=== PATIENT | female | born 1965 | race Caucasian/White ===

== ENCOUNTER 2019-12-06 11:17 | Inpatient (IN) ==
--- NOTE | 2019-11-18 10:39 | PAT Medication Instructions ---
Medication Instructions Date of Service November 18, 2019 Home Medications albuterol sulfate 1 inh INHALATION QID PRN alprazolam [Xanax] 0.25 mg PO QPM PRN amlodipine 5 mg PO QPM ascorbic acid (vitamin C) [Vitamin C] 500 mg PO QAM cyanocobalamin (vitamin B-12) [Vitamin B-12] 500 mcg PO QAM lansoprazole [Prevacid] 30 mg PO BID losartan 50 mg PO QAM metformin 500 mg PO BID metoclopramide HCl [Reglan] 5 mg PO BID montelukast [Singulair] 10 mg PO PM DO NOT take the morning of surgery ascorbic acid (vitamin C) [Vitamin C] 500 mg PO QAM cyanocobalamin (vitamin B-12) [Vitamin B-12] 500 mcg PO QAM losartan 50 mg PO QAM metformin 500 mg PO BID Take morning of surgery With a small sip of water, OTHERWISE NOTHING TO EAT OR DRINK AFTER MIDNIGHT: albuterol sulfate 1 inh INHALATION QID PRN (use if needed; please bring with you to hospital day of surgery if possible) lansoprazole [Prevacid] 30 mg PO BID metoclopramide HCl [Reglan] 5 mg PO BID Take evening before surgery albuterol sulfate 1 inh INHALATION QID PRN (if needed) alprazolam [Xanax] 0.25 mg PO QPM PRN (if needed) amlodipine 5 mg PO QPM lansoprazole [Prevacid] 30 mg PO BID metformin 500 mg PO BID metoclopramide HCl [Reglan] 5 mg PO BID montelukast [Singulair] 10 mg PO PM Other Notes If you have any questions please call us at [phone] or [phone] or [phone] or [phone]
--- NOTE | 2019-11-22 12:24 | Anesthesiology Consultation ---
Date of Service November 22, 2019 Assessment & Plan (1) Encounter for pre-operative examination: COVID Status: As of 11/21 assessment, patient denies travel to endemic area, known exposure/sick contacts, or symptoms of COVID19. Patient instructed that they and their household members must follow strict social distancing guidelines, wear a mask in public and avoid travel for 14 days prior to surgery. Preoperative COVID19 testing to be completed prior to surgery per surgeon's a rrangements. Patient made aware to self-isolate as much as possible between COVID testing and surgery. Chart Review Chart Review: Acceptable Risk for Surgery (pending PCP clearance 11/24) and Patient seen in Pre Admission Testing Teaching & Discussion Instructed NPO after midnight before surgery, except medications with 15 cc of water. Medication instructions provided according to the PAT guidelines. History Surgery Operation Date: 12/06/19 12:25 Proposed Procedures p L4-L5 Decompression Fusion, Spinal Cord Monitoring - Horace Holder, Height/Weight Height: 5 ft 1 in Weight: 70.7 kg Allergies Allergy/AdvReac Type Severity Reaction Status Date / Time clindamycin Allergy Hives Verified 11/17/19 16:20 iodine Allergy Redness of Verified 11/17/19 16:20 Skin latex Allergy Redness of Verified 11/17/19 16:20 Skin omeprazole Allergy Hives Verified 11/17/19 16:20 oxycodone Allergy Hives Verified 11/17/19 16:20 shellfish derived Allergy Hives Verified 11/17/19 16:20 Sulfa (Sulfonamide Allergy Hives Verified 11/17/19 16:20 Antibiotics) Medications Home Medications Medication Instructions Recorded Confirmed Last Taken albuterol sulfate 1 inh INHALATION QID PRN 11/17/19 11/17/19 Unknown alprazolam [Xanax] 0.25 mg PO QPM PRN 11/17/19 11/17/19 Unknown amlodipine 5 mg PO QPM 11/17/19 11/17/19 Unknown ascorbic acid (vitamin C) [Vitamin 500 mg PO QAM 11/17/19 11/17/19 Unknown C] cyanocobalamin (vitamin B-12) 500 mcg PO QAM 11/17/19 11/17/19 Unknown [Vitamin B-12] lansoprazole [Prevacid] 30 mg PO BID 11/17/19 11/17/19 Unknown losartan 50 mg PO QAM 11/17/19 11/17/19 Unknown metformin 500 mg PO BID 11/17/19 11/17/19 Unknown metoclopramide HCl [Reglan] 5 mg PO BID 11/17/19 11/17/19 Unknown montelukast [Singulair] 10 mg PO PM 11/17/19 11/17/19 Unknown Past Medical History Medical History Asthma rarely uses PRN inh DM type 2 (diabetes mellitus, type 2) NIDDM GERD (gastroesophageal reflux disease) History of cardiac murmur as a child History of rheumatic fever 1999 HTN (hypertension) Idiopathic pulmonary fibrosis follows with dr. tori tanner in [place] and also sees Dr. 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) Past Family History Family History Other No family history of adverse response to anesthesia Past Surgical History Surgical History History of ankle surgery History of arthroscopy of left knee History of bronchoscopy History of carpal tunnel release History of section x 2 History of colonoscopy History of elbow surgery Rt History of esophagogastroduodenoscopy (EGD) History of lung biopsy open History of repair of left rotator cuff History of surgery on right wrist History of total abdominal hysterectomy and bilateral salpingo-oophorectomy Hx of tonsillectomy Past Anesthesia History No Hx of Anesthesia Complications and No Family Hx of Anesthesia Complications History of PONV No Hx of PONV and Hx of Motion Sickness Social History Smoking Status: Never smoker Do You Dip or Chew Tobacco: No Hx Alcohol Use: No Hx Substance Use: No Review of Systems Pt denies any recent chest pain, shortness of breath, palpitations, cough above baseline from IPF, fever, URI, or uncontrolled acid reflux. Physical Exam Vital Signs BP: 115/77 P: 86bpm SPO2: 96% RA T: 98.5 F R: 16 ENMT Mouth: + dentures and + edentulous Thyromental Distance: > or= 3.5 Finger Breadths Mallampati Class: I Neck normal visual inspection; neck extension not limited Respiratory normal respiratory effort Auscultation: + diminished lung sounds (in apices) and + crackles (B/L bases and midlung) Cardiovascular Rate/Rhythm: regular rate and regular rhythm Heart Sounds: no murmur Vessels: no carotid bruit Testing Laboratory Results 11/22/19 12:28 11/22/19 12:28 PT 10.9 Seconds (9.0-12.0) 11/22/19 12:28 INR 1.0 (0.9-1.1) 11/22/19 12: APTT 26.2 Seconds (21.0-31.0) 11/22/19 12: Hemoglobin A1c 6.1 % (4.5-5.6) H 11/22/19 12:28 Urine Color Yellow 11/22/19 Unknown Urine Appearance Clear (Clear) 11/22/19 Unknown Urine pH 5.0 (4.5-7.5) 11/22/19 Unknown Ur Specific [place] 1.009 (1.000-1.030) 11/22/19 Unknown Urine Protein Negative (Negative) 11/22/19 Unknown Urine Glucose (UA) Negative (Negative) 11/22/19 Unknown Urine Ketones Negative (Negative) 11/22/19 Unknown Urine Nitrite Negative (Negative) 11/22/19 Unknown Ur Leukocyte Esterase Negative (Negative) 11/22/19 Unknown Blood Type A Negative 11/22/19 12:28 Antibody Screen NEGATIVE 11/22/19 12:28 Electrocardiogram Date: 11/22/19 Findings: + NSR @ (83bpm) Chest X-Ray Date: 11/22/19 IMPRESSION: 1. Abnormal chest x-ray 2. Diffuse bilateral interstitial opacities. Mild prominence the right paratracheal soft tissues. Diagnostic considerations include chronic inter stitial lung disease, an acute infectious/inflammatory interstitial process, or less likely interstitial pulmonary edema. Clinical correlation and correlation with prior radiographs recommended. *consistent with known PMH of IPF. Echocardiogram Date: 01/21/17 EF: 65% LV Function: normal Valvular Disease: + MR (mild) Aorta not well seen.
[2019-11-22 13:36] LABS: Basophils # (auto) 0.23 K/uL (0-0.2); Basophils % (auto) 1.8 %; Eosinophils # (auto) 1.46 K/uL (0-0.5); Eosinophils % (auto) 11.7 %; Hematocrit (blood only) 35.7 % (37-47); Hemoglobin 10.9 g/dL (12.0-16.0); Immature Granulocytes # (auto) 0.04 K/uL (0.00-0.02); Immature Granulocytes % (auto) 0.3 %; Lymphocytes # (auto) 3.11 K/uL (1.2-3.4); Lymphocytes % (auto) 24.9 %; Mean Corpuscular Hgb Conc 30.5 g/dL (32-36); Mean Corpuscular Volume 78.5 fL (80-100); Monocytes # (auto) 0.98 K/uL (0.11-0.59); Monocytes % (auto) 7.9 %; Neutrophils # (auto) 6.66 K/uL (1.4-6.5); Neutrophils % (auto) 53.4 %; Platelet Count 344 K/uL (130-400); RDW Coefficient of Variation 17.3 % (11.5-14.5); RDW Standard Deviation 49.5 fL (36.4-46.3); Red Blood Count 4.55 M/uL (4.2-5.4); White Blood Count 12.48 K/uL (4.8-10.8)
--- NOTE | 2019-11-22 13:38 | XRay Report ---
XR chest Pre-admission PA/Lat CLINICAL HISTORY: Preoperative chest COMPARISON STUDY: No previous studies for comparison. FINDINGS: The heart is borderline enlarged. There are diffuse bilateral interstitial opacities. Trace pleural effusions cannot be excluded. There is mild prominence of the right paratracheal soft tissue s and mild adenopathy is not excluded. Correlation with prior radiographs is recommended to determine the chronicity of this process.[ IMPRESSION: 1. Abnormal chest x-ray 2. Diffuse bilateral interstitial opacities. Mild prominence the right paratracheal soft tissues. Yaa gnostic considerations include chronic interstitial lung disease, an acute infectious/inflammatory in terstitial process, or less likely interstitial pulmonary edema. Clinical correlation and correlation with prior radiographs recommended. ACT 112: Negative or not required by law. Electronically signed by: Vish Santoro M.D. 11/22/2019 1:37 PM
[2019-11-22 13:46] LABS: Partial Thromboplastin Ratio 0.9; Partial Thromboplastin Time 26.2 Seconds (21.0-31.0); Prothrombin Time 10.9 Seconds (9.0-12.0)
[2019-11-22 13:58] LABS: BUN Creatinine Ratio 7.6 (10-20); Calcium 9.6 mg/dl (8.5-10.1); Est GFR (African American) 101.3; Est GFR (Non-African American) 87.4
[2019-11-22 13:59] LABS: Appearance Urine Clear (Clear); Bilirubin Urine Negative (Negative); Blood Urine Negative (Negative); Color Urine Yellow; Glucose Urine UA Negative (Negative); Ketones Urine Negative (Negative); Leukocyte Esterase Urine Negative (Negative); Nitrite Urine Negative (Negative); Protein Urine Negative (Negative); Specific Gravity Urine 1.009 (1.000-1.030); Urobilinogen Urine Negative (Negative)
[2019-11-23 06:06] LABS: Estimated Average Glucose 128 mg/dl; Hemoglobin A1C 6.1 % (4.5-5.6)
--- NOTE | 2019-11-23 06:48 | Electrocardiogram Report ---
Test Reason : Blood Pressure : / mmHG Vent. Rate : 083 BPM Atrial Rate : 083 BPM P-R Int : 148 ms QRS Dur : 080 ms QT Int : 368 ms P-R-T Axes : 030 084 036 degrees QTc Int : 432 ms Normal sinus rhythm Normal ECG No previous ECGs available Confirmed by Otilio De La Cruz ([id number]) on 11/23/2019 6:48:31 AM Referred By: Horace Holder Confirmed By:Otilio De La Cruz
[~2019-12-06 11:17] MED LIST: ACETAMINOPHEN 500 MG TAB PO SCH; CeleBREX 200 MG CAP PO SCH; GABAPENTIN 900 MG DOSE PO SCH; LR 15ML/HR IV SCH; MIDAZOLAM HCL 1 MG/ML 2ML VIAL ONE; ceFAZolin 1000MG 1,000 MG/7.5 ML SYR IV SCH; fentaNYL citrate 100 MCG/2 ML VIAL ONE
[2019-12-06] MEDS ORDERED: ATROPINE SULFATE 0.1 MG/ML 10ML SYR IV PRN (12:03)
[2019-12-06] MEDS ORDERED: ONDANSETRON INJ 2 MG/ML 2 ML VIAL IV PRN ×2 (12:03→15:44)
[2019-12-06] MEDS ORDERED: ePHEDrine sulfate 50 MG/ML AMP IV PRN (12:03)
[2019-12-06] MEDS ORDERED: PROMETHAZINE HCL 6.25 MG in SODIUM CHLORIDE 0.9% 50 ML IV PRN (12:03)
[2019-12-06] MEDS ORDERED: HYDROmorphone INJ 2 MG/ML SYR/VIAL IV PRN (12:03)
--- NOTE | 2019-12-06 12:09 | History & Physical Bridge Note ---
Date of Service December 06, 2019 History & Physical Bridge Note I have examined the patient, reviewed the History & Physical and in the interval since the performance of the History & Physical I have noted the following changes of clinical significance: no changes noted
--- NOTE | 2019-12-06 12:10 | History & Physical Report ---
Date of Service December 06, 2019 Assessment & Plan (1) Lumbar disc herniation with radiculopathy: Admission and Anticipated Discharge Date Admission Date: L4-5 decompression fusion History of Present Illness Chief Complaint: Back and bilateral leg pain Primary Care Provider: Darin James MD This is a 54-year-old female who presents with chronic persistent back and leg symptoms after failing course of nonoperative care is here for surgical intervention. Allergies Allergy/AdvReac Type Severity Reaction Status Date / Time clindamycin Allergy Hives Verified 12/06/19 11:45 iodine Allergy Redness of Verified 12/06/19 11:45 Skin latex Allergy Redness of Verified 12/06/19 11:45 Skin omeprazole Allergy Hives Verified 12/06/19 11:45 oxycodone Allergy Hives Verified 12/06/19 11:45 shellfish derived Allergy Hives Verified 12/06/19 11:45 Sulfa (Sulfonamide Allergy Hives Verified 12/06/19 11:45 Antibiotics) Home Medications Home Medications Medication Instructions Recorded Confirmed Type albuterol sulfate 1 inh INHALATION QID PRN 11/17/19 12/06/19 History alprazolam [Xanax] 0.25 mg PO QPM PRN 11/17/19 12/06/19 History amlodipine 5 mg PO QPM 11/17/19 12/06/19 History ascorbic acid (vitamin C) [Vitamin 500 mg PO QAM 11/17/19 12/06/19 History C] cyanocobalamin (vitamin B-12) 500 mcg PO QAM 11/17/19 12/06/19 History [Vitamin B-12] lansoprazole [Prevacid] 30 mg PO BID 11/17/19 12/06/19 History losartan 50 mg PO QAM 11/17/19 12/06/19 History metformin 500 mg PO BID 11/17/19 12/06/19 History metoclopramide HCl [Reglan] 5 mg PO BID 11/17/19 12/06/19 History montelukast [Singulair] 10 mg PO PM 11/17/19 12/06/19 History Past Med/Surg History Medical History Asthma rarely uses PRN inh DM type 2 (diabetes mellitus, type 2) NIDDM GERD (gastroesophageal reflux disease) History of cardiac murmur as a child History of rheumatic fever 1999 HTN (hypertension) Idiopathic pulmonary fibrosis follows with dr. tori tanner in [place] and also sees Dr. Yaneth Wilson, [facility] White coat syndrome with hypertension Surgical History History of ankle surgery History of arthroscopy of left knee History of bronchoscopy History of carpal tunnel release History of section x 2 History of colonoscopy History of elbow surgery Rt History of esophagogastroduodenoscopy (EGD) History of lung biopsy open History of repair of left rotator cuff History of surgery on right wrist History of total abdominal hysterectomy and bilateral salpingo-oophorectomy Hx of tonsillectomy Family History Other No family history of adverse response to anesthesia Social History Smoking Status: Never smoker Second Hand Exposure: Yes (as a child); Do You Dip or Chew Tobacco: No; Hx Alcohol Use: No Hx Substance Use: No Preferred Language: Yoruba Communication Ability: Effective Technical Training Instructor Required: No Beliefs That Will Affect Care: None Current Living Situation: Spouse Feels Safe at Home: Yes Safety Concerns: Feels Safe At This Time Assistive Devices: Denture - Upper, Denture - Lower and Glasses Physical Exam Physical Exam: Patient alert and oriented neurologically intact. Lungs clear to auscultation. Heart regular in rhythm. Results & Data ([facility]) Vital Signs (Past 12 Hours) Vital Signs Temp Pulse Resp BP Pulse Ox 12/06/19 11:51 36.8 C 83 20 179/100 H 95
[2019-12-06] MEDS ORDERED: BACITRACIN INJ 50,000 UNIT VIAL ONE (12:32)
[2019-12-06] MEDS ORDERED: BUPIVACAINE/EPINEPHRINE 0.25% 1:200,000 30 ML VIAL ONE (12:32)
[2019-12-06] MEDS ORDERED: ONDANSETRON INJ 2 MG/ML 2 ML VIAL ONE (13:17)
[2019-12-06] MEDS ORDERED: ROCURONIUM BROMIDE 10 MG/ML 5 ML VIAL IV ONE (13:17)
[2019-12-06] MEDS ORDERED: PROPOFOL IV EMULSION 10 MG/ML 20 ML VIAL IV ONE (13:17)
[2019-12-06] MEDS ORDERED: DEXAMETHASONE SOD INJ 4 MG/ML VIAL ONE (13:17)
[2019-12-06] MEDS ORDERED: LIDOCAINE HCL 2% 2 ML VIAL/AMP(20MG/ML) INFIL ONE (13:17)
[2019-12-06] MEDS ORDERED: LARYING-O-JET KIT (LTA) ONE (13:17)
[2019-12-06] MEDS ORDERED: ALBUTEROL HFA INHALER 8.5 GM ONE (13:18)
[2019-12-06] MEDS ORDERED: PHENYLEPHRINE 100MCG/ML 5ML SYR ONE (13:22)
[2019-12-06] MEDS ORDERED: ePHEDrine sulfate 50 MG/ML SYR ONE (13:22)
[2019-12-06] MEDS ORDERED: FLOSEAL HEMOSTATIC MATRIX 10ML TOP ONE (13:25)
[2019-12-06] MEDS ORDERED: HYDROmorphone INJ 2 MG/ML SYR/VIAL ONE (13:44)
[2019-12-06] MEDS ORDERED: SUGAMMADEX SODIUM 200 MG/2 ML VIAL IV ONE (14:04)
--- NOTE | 2019-12-06 14:10 | Operative Report ---
Post Operative Report Pre & Post Diagnosis Operation Date: 12/06/19 12:25 Pre-Op Diagnosis: Lumbar spinal stenosis with radiculopathy Post-Op Diagnosis: Same I identified the patient and participated in the time-out.: Yes Procedure Operation Date: 12/06/19 12:25 Actual Procedures #1 lumbar decompression with bilateral medial facetectomy and foraminotomies L4- 5. #2 posterior spinal fusion L4-5 per #3 please blisters rotation L4-5 per #4 interbody fusion L4-5. #5 placed a peek cage 13 x 22 mm at L4-5 for #6 placement of locally harvested morselized autograft in the posterior lateral gutters. #7 placement infuse collagen sponge, and master graft in the posterior lateral gutters and stamped interbody space. Surgeon Horace Holder, Binding End Stitcher Lucy Merida Estimated Blood Loss 25 Findings Consistent with Post-Op Diagnosis Specimens None Indications This is a 54-year-old female presents with above-mentioned diagnosis after failed extensive course of nonoperative care is here for the above-mentioned procedure. Description of Procedure Patient was met with identified informed consent obtained. Patient was then taken to the operative suite underwent admission placed in a prone position to check stable on top levels and frame. All bony prominences well-padded eyes inspected to ensure no external pressure placed upon the. This point the lumbar spine was prepped and draped in normal sterile fashion. Sharp dissection with the assistance of Bovie cautery was performed down to and exposing the lamina and transverse processes of L4 and L5 bilaterally. From caudal to cephalad fashion complete laminectomy of L4 was performed including bilateral medial facetectomies and foraminotomies addressing all neural encroachment. Pedicle screws then placed in L4 and L5 bilaterally with assistance of fluoroscopy the proper size kristen placed. By way of a transforaminal posterior left Steven discectomy of L4-5 was performed endplates curetted to subcortical being bone and a 13 x 22 mm peek cage filled with osteobone graft tapped in position. There was evidence of calcification of free fragments of disc material that had migrated cephalad they were removed in their entirety as well. Pedicle screw was then locked into final position bilaterally. The transverse processes of L4 and L5 burred to subcortical bleeding bone. Infuse, and sponge mask graft no bladder graft was placed in the posterior lateral gutters. 15 round ARBEN drain inserted. The incision was then closed with 1 Vicryl in the fascia 2-0 Vicryl subcutaneously and 4 Monocryl for final skin closure. Steri-Strips sterile dressings placed. Patient was awakened taken to PACU stable condition. Please note spinal cord monitoring was utilized at the procedure no changes noted. Penelope Merida was present for the entire surgery involved in patient positioning complex portions of the surgery and fashion closure. I attest to the content of the Intraoperative Record and any orders documented therein. Any exceptions are noted below.
--- NOTE | 2019-12-06 14:26 | Fluoroscopy Report ---
FL lumbar spine 2-3V CLINICAL HISTORY: L4-5 DECOMPRESSION/FUSION/INTERBODY COMPARISON STUDY: None. FLUOROSCOPY TIME: 13 seconds. FINDINGS: There are 2 fluoroscopic spot images of the lower lumbar spine. There is posterior decompre ssion fusion at L4-L5 with pedicle screws and rods. The hardware appears intact. IMPRESSION: Fluoroscopy provided for L4-L5 posterior decompression and fusion ACT 112: Negative or not required by law. Electronically signed by: Isai Faust M.D. 12/06/2019 2:25 PM
[2019-12-06] MEDS: fentaNYL citrate 100 MCG/2 ML VIAL IV PRN ×2 (14:43→15:10)
--- NOTE | 2019-12-06 15:08 | Anesthesiology Progress Note ---
Date of Service December 06, 2019 Anesthesia Post Procedure Vital Signs Vital Signs: Temp Pulse Resp BP BP Pulse Ox 12/06/19 15:05 87 13 130/79 98 12/06/19 14:55 36.8 C 90 12 133/81 99 12/06/19 14:45 91 H 16 125/79 100 12/06/19 14:35 98 H 18 129/83 100 12/06/19 14:28 36.7 C 97 H 13 142/85 H 100 12/06/19 11:51 36.8 C 83 20 179/100 H 95 Pain Intensity Lower Back: Pain Intensity: 5 Transfer of Care Handoff Completed per policy Notes Mental Status: alert / awake / arousable Patient Amnestic to Procedure: Yes Nausea / Vomiting: adequately controlled Pain: adequately controlled Airway Patency, RR, SpO2: stable & adequate BP & HR: stable & adequate Hydration State: stable & adequate Anesthetic Complications: no major complications apparent
[2019-12-06] MEDS ORDERED: NALOXONE HCL 0.4 MG/1 ML VIAL/CARP IV PRN (15:44)
[2019-12-06] MEDS ORDERED: LORazepam 0.5 MG/1 ML VIAL IV PRN (15:44)
[2019-12-06] MEDS ORDERED: ONDANSETRON 4 MG OD TAB PO PRN (15:44)
[2019-12-06] MEDS ORDERED: DO NOT ADMINISTER FLU VACCINE PRN (15:44)
[2019-12-06] MEDS ORDERED: PROMETHAZINE HCL 12.5 MG in SODIUM CHLORIDE 0.9% 50 ML IV PRN (15:44)
[2019-12-06] MEDS ORDERED: FAMOTIDINE 20 MG TAB PO PRN (15:44)
[2019-12-06] MEDS ORDERED: ALUMINUM/MAGNESIUM SUSP 30 ML UDC PO PRN (15:44)
[2019-12-06] MEDS ORDERED: diphenhydrAMINE Capsule 25 MG CAP PO PRN (15:44)
[2019-12-06] MEDS ORDERED: SOD PHOSPHATE/SOD BIPHOSPHATE ENEMA 132 ML BTL PR PRN (15:44)
[2019-12-06] MEDS ORDERED: traMADol HCL 50 MG TABLET PO PRN (15:44)
[2019-12-06] MEDS ORDERED: ALBUTEROL HFA 8 GM INHALER INH PRN (15:44)
[2019-12-06] MEDS ORDERED: HYDROmorphone INJ 1 MG/ML SYRINGE IV PRN (15:44)
[2019-12-06] MEDS ORDERED: ACETAMINOPHEN 500 MG TAB PO PRN (15:44)
[2019-12-06] MEDS ORDERED: HYDROmorphone INJ 0.5 MG/0.5 ML SYR IV PRN (15:44)
[2019-12-06] MEDS ORDERED: DO NOT ADMINISTER PNEUMOCOCCAL VACCINE PRN (15:44)
[2019-12-06] MEDS ORDERED: MAGNESIUM HYDROXIDE SUSP 30 ML UDC PO PRN (15:44)
[2019-12-06] MEDS ORDERED: hydrOXYzine HCl 25 MG TAB PO PRN (15:44)
[2019-12-06] MEDS ORDERED: LORazepam 0.5 MG TAB PO PRN (15:44)
[2019-12-06] MEDS ORDERED: ACETAMINOPHEN 1,000 MG/100 ML VIAL IV PRN (15:44)
[2019-12-06] MEDS ORDERED: METOCLOPRAMIDE HCL INJ 5 MG/ML 2 ML VIAL IV PRN (15:44)
[2019-12-06] MEDS ORDERED: bisacodyL 10 MG SUPP PR PRN (15:44)
[2019-12-06] MEDS ORDERED: INFLUENZA VIRUS QUAD VACCINE 0.5 ML SYR IM ONE (15:54)
[2019-12-06] MEDS ORDERED: INFLUENZA ADMINISTRATION CHARGE ONE (15:54)
[2019-12-06] MEDS ORDERED: PHARMACY GLYCEMIC MGMT CONSULT PRN (15:56)
[2019-12-06] MEDS: SODIUM CHLORIDE 0.9% 1000ML 1,000 ML IV SCH (16:12)
--- NOTE | 2019-12-06 16:13 | Hospitalist Consultation ---
Date of Consultation December 06, 2019 Assessment & Plan (1) S/P spinal surgery: This is a 54yo F with a PMH of HTN, DM II, asthma, idiopathic pulmonary fibrosis, GERD, anxiety and other medical problems listed below who is POD#0 s/p lumbar decompression and fusion by Dr. Holder. -POD#0 s/p lumbar decompression and fusion by Dr. Holder -Pt is doing well post-operatively -Per ortho for pain control, wound care, anticoagulation and activities -Monitor H&H (EBL 25ml), continue incentive spirometry, PT/OT when appropriate -Sounded tachycardic on exam. Ordered EKG to further assess. Continue IV fluids (2) HTN (hypertension): Normotensive. Continue home losartan and amlodipine tomorrow (3) DM type 2 (diabetes mellitus, type 2): A1c pending for AM -Hold home agents -SSI while in-patient -BSG AC HS (4) Asthma: Rarely uses rescue inhaler at home. Albuterol ordered PRN (5) Idiopathic pulmonary fibrosis: Does not require home O2. Not on steroids (6) Anxiety: Xanax held by primary service. Ativan PRN (7) GERD (gastroesophageal reflux disease): Continue Prevacid and Reglan BID PCP: Minor Dispo: Per primary service Patient seen in collaboration with Dr. Benites. Please see addendum. Supervising Physician Co-Signing Physician Notes I, Dr. Luis A Benites, have seen and assessed the patient with physician pastrycook's assistant and would like to comment On physical exam General exam: no acute distress Heart: mildly elevated heart rates Lungs: on room air, no wheezing Abdomen: soft, nontender Back: has ARBEN drain with blood Extremities: moves all extremities Assessment and Plan -this is a patient with Lumbar spinal stenosis with radiculopathy and had lumbar spine operation on 12/06/[address] Holder (Actual Procedures: #1 lumbar decompression with bilateral medial facetectomy and foraminotomies L4-5. #2 posterior spinal fusion L4-5 per #3 please blisters rotation L4-5 per #4 interbo dy fusion L4-5. #5 placed a peek cage 13 x 22 mm at L4-5 for #6 placement of locally harvested morselized autograft in the posterior lateral gutters. #7 placement infuse collagen sponge, and master graft in the posterior lateral gutters and stamped interbody space.) -hospitalist medicine consulted for medical management -patient follows with local pulmonary clinic and also [facility] for Idiopathic pulmonary fibrosis and currently not on any active IPF medications, does not use any CPAP at home, currently on room air -no wheezing on exam -follow the post-operative EKG, currently on IV fluids, monitor the heart rate -post-operatively the blood count is currently stable, follow the CBC, management of ARBEN drain as per orthopedics, on pain medications prn, PT/OT assessments for 12/07/2019 -management of blood pressure, type 2 diabetes mellitus, and anxiety as documented by physician pastrycook's assistant -agree with other assessment and plan as documented by physician pastrycook's assistant -Dr. Esparza will be consult hospitalist attending for the patient on 12/07/2019 History of Present Illness Reason for Consultation: post op medical mgmt Attending Physician: Horace Holder, History of Present Illness This is a 54yo F with a PMH of HTN, DM II, asthma, idiopathic pulmonary fibrosis, GERD, anxiety and other medical problems listed below who is POD#0 s/p lumbar decompression and fusion by Dr. Holder. Feeling well postoperatively. Denies any fever, chills, headache, lightheadedness, chest pain, palpitations, shortness of breath, abdominal pain, nausea, vomiting, dysuria, constipation or diarrhea. PCP is Dr. James. Has a history of IPF for which she follows with specialists locally as well as [facility]. Does not require home O2 or steroids. Allergies Allergy/AdvReac Type Severity Reaction Status Date / Time clindamycin Allergy Hives Verified 12/06/19 11:45 iodine Allergy Redness of Verified 12/06/19 11:45 Skin latex Allergy Redness of Verified 12/06/19 11:45 Skin omeprazole Allergy Hives Verified 12/06/19 11:45 oxycodone Allergy Hives Verified 12/06/19 11:45 shellfish derived Allergy Hives Verified 12/06/19 11:45 Sulfa (Sulfonamide Allergy Hives Verified 12/06/19 11:45 Antibiotics) Home Medications Home Medications Medication Instructions Recorded Confirmed Type albuterol sulfate 1 inh INHALATION QID PRN 11/17/19 12/06/19 History alprazolam [Xanax] 0.25 mg PO QPM PRN 11/17/19 12/06/19 History amlodipine 5 mg PO QPM 11/17/19 12/06/19 History ascorbic acid (vitamin C) [Vitamin 500 mg PO QAM 11/17/19 12/06/19 History C] cyanocobalamin (vitamin B-12) 500 mcg PO QAM 11/17/19 12/06/19 History [Vitamin B-12] lansoprazole [Prevacid] 30 mg PO BID 11/17/19 12/06/19 History losartan 50 mg PO QAM 11/17/19 12/06/19 History metformin 500 mg PO BID 11/17/19 12/06/19 History metoclopramide HCl [Reglan] 5 mg PO BID 11/17/19 12/06/19 History montelukast [Singulair] 10 mg PO PM 11/17/19 12/06/19 History Patient History Medical History Anxiety Asthma rarely uses PRN inh DM type 2 (diabetes mellitus, type 2) NIDDM GERD (gastroesophageal reflux disease) History of cardiac murmur as a child History of rheumatic fever 1999 HTN (hypertension) Idiopathic pulmonary fibrosis follows with dr. tori tanner in [place] and also sees Dr. Yaneth Wilson, [facility] White coat syndrome with hypertension Surgical History History of ankle surgery History of arthroscopy of left knee History of bronchoscopy History of carpal tunnel release History of section x 2 History of colonoscopy History of elbow surgery Rt History of esophagogastroduodenoscopy (EGD) History of lung biopsy open History of repair of left rotator cuff History of surgery on right wrist History of total abdominal hysterectomy and bilateral salpingo-oophorectomy Hx of tonsillectomy Family History (Updated 12/06/19 @ 16:44 by Gaye Tay PA-C) Other Heart disease No family history of adverse response to anesthesia Social History Smoking Status: Never smoker Second Hand Exposure: Yes (as a child); Do You Dip or Chew Tobacco: No; Hx Alcohol Use: No Hx Substance Use: No Preferred Language: [place] Islander Communication Ability: Effective Od Grinder Operator Required: No Beliefs That Will Affect Care: None Current Living Situation: Spouse Feels Safe at Home: Yes Safety Concerns: Feels Safe At This Time Assistive Devices: Denture - Upper, Denture - Lower and Glasses Review of Systems Review of Systems: At least ten systems reviewed and negative except as noted in the HPI. Physical Exam Physical Exam: General Appearance: WD/WN, vitals as above, NAD, sitting up in bed, pleasant, conversing easily Head: normocephalic, atraumatic Eyes: normal inspection, PERRL, conjunctivae normal, anicteric sclerae ENT: external ear and nose normal, oropharynx normal Neck: normal visual inspection, trachea midline, no thyromegaly Respiratory: normal respiratory effort, lungs clear to auscultation, no wheeze, rales, rhonchi. No accessory muscle use Cardiovascular: tachycardic rate, rhythm, no murmur, normal peripheral pulses, no BLE edema. Vessels: no JVD Abdomen/GI: normal bowel sounds, soft, nontender, no hepatosplenomegaly Extremities/Musculoskeletal: +ARBEN drain with serosanguineous output. No cyanosis or clubbing, extremities motor strength 5/5 Neurologic: PERRL, CN's II-XI intact bilaterally and moves all extremities Psychiatric: A+Ox3, euthymic affect Skin: no rashes, normal color, warm/dry Results & Data Results & Data ([facility]) Vital Signs (Past 12 Hours) Vital Signs Temp Pulse Pulse Resp BP BP Pulse Ox 12/06/19 15:44 36.6 C 89 21 124/81 100 12/06/19 15:25 87 18 122/76 99 12/06/19 15:15 85 15 129/79 97 12/06/19 15:05 87 13 130/79 98 12/06/19 14:55 36.8 C 90 12 133/81 99 12/06/19 14:45 91 H 16 125/79 100 12/06/19 14:35 98 H 18 129/83 100 12/06/19 14:28 36.7 C 97 H 13 142/85 H 100 12/06/19 11:51 36.8 C 83 20 179/100 H 95 Laboratory Results Short CBC 11/22/19 11/22/19 11/22/19 Range/Units 12:28 12:28 12:28 RBC 4.55 (4.2-5.4) M/uL MCV 78.5 L (80-100) fL MCH 24.0 L (25-34) pg MCHC 30.5 L (32-36) g/dL RDW Std Deviation 49.5 H (36.4-46.3) fL RDW Coeff of Kareem 17.3 H (11.5-14.5) % MPV 11.0 H (7.4-10.4) fL Immature Gran % (Auto) 0.3 % Neut % (Auto) 53.4 % Lymph % (Auto) 24.9 % [place] % (Auto) 7.9 % Eos % (Auto) 11.7 % Baso % (Auto) 1.8 % Neut # (Auto) 6.66 H (1.4-6.5) K/uL Lymph # (Auto) 3.11 (1.2-3.4) K/uL [place] # (Auto) 0.98 H (0.11-0.59) K/uL Eos # (Auto) 1.46 H (0-0.5) K/uL Baso # (Auto) 0.23 H (0-0.2) K/uL Immature Gran # (Auto) 0.04 H (0.00-0.02) K/uL PT 10.9 (9.0-12.0) Seconds INR 1.0 (0.9-1.1) APTT 26.2 (21.0-31.0) Seconds PTT Ratio 0.9 Sodium (136-145) mmol/L Potassium (3.5-5.1) mmol/L Chloride (98-107) mmol/L Carbon Dioxide (21-32) mmol/L Anion Gap (3-11) BUN (7-18) mg/dl Creatinine (0.6-1.2) mg/dl Est Cr Clr Drug Dosing ml/min Est GFR ( Amer) Est GFR (Non-Af Amer) BUN/Creatinine Ratio (10-20) Glucose (70-99) mg/dl POC Glucose (70-99) mg/dl Estimat Average Glucose mg/dl Hemoglobin A1c (4.5-5.6) % Calcium (8.5-10.1) mg/dl Urine Color Urine Appearance (Clear) Urine pH (4.5-7.5) Ur Specific [place] (1.000-1.030) Urine Protein (Negative) Urine Glucose (UA) (Negative) Urine Ketones (Negative) Urine Blood (Negative) Urine Nitrite (Negative) Urine Bilirubin (Negative) Urine Urobilinogen (Negative) Ur Leukocyte Esterase (Negative) Blood Type A Negative Antibody Screen NEGATIVE 11/22/19 11/22/19 11/22/19 Range/Units 12:28 12:28 Unknown RBC (4.2-5.4) M/uL MCV (80-100) fL MCH (25-34) pg MCHC (32-36) g/dL RDW Std Deviation (36.4-46.3) fL RDW Coeff of Kareem (11.5-14.5) % MPV (7.4-10.4) fL Immature Gran % (Auto) % Neut % (Auto) % Lymph % (Auto) % [place] % (Auto) % Eos % (Auto) % Baso % (Auto) % Neut # (Auto) (1.4-6.5) K/uL Lymph # (Auto) (1.2-3.4) K/uL [place] # (Auto) (0.11-0.59) K/uL Eos # (Auto) (0-0.5) K/uL Baso # (Auto) (0-0.2) K/uL Immature Gran # (Auto) (0.00-0.02) K/uL PT (9.0-12.0) Seconds INR (0.9-1.1) APTT (21.0-31.0) Seconds PTT Ratio Sodium 139 (136-145) mmol/L Potassium 4.0 (3.5-5.1) mmol/L Chloride 106 (98-107) mmol/L Carbon Dioxide 24 (21-32) mmol/L Anion Gap 9.0 (3-11) BUN 6 L (7-18) mg/dl Creatinine 0.78 (0.6-1.2) mg/dl Est Cr Clr Drug Dosing 74.0 ml/min Est GFR ( Amer) 101.3 Est GFR (Non-Af Amer) 87.4 BUN/Creatinine Ratio 7.6 L (10-20) Glucose 101 H (70-99) mg/dl POC Glucose (70-99) mg/dl Estimat Average Glucose 128 mg/dl Hemoglobin A1c 6.1 H (4.5-5.6) % Calcium 9.6 (8.5-10.1) mg/dl Urine Color Yellow Urine Appearance Clear (Clear) Urine pH 5.0 (4.5-7.5) Ur Specific [place] 1.009 (1.000-1.030) Urine Protein Negative (Negative) Urine Glucose (UA) Negative (Negative) Urine Ketones Negative (Negative) Urine Blood Negative (Negative) Urine Nitrite Negative (Negative) Urine Bilirubin Negative (Negative) Urine Urobilinogen Negative (Negative) Ur Leukocyte Esterase Negative (Negative) Blood Type Antibody Screen 12/06/19 12/06/19 Range/Units 12:00 14:29 RBC (4.2-5.4) M/uL MCV (80-100) fL MCH (25-34) pg MCHC (32-36) g/dL RDW Std Deviation (36.4-46.3) fL RDW Coeff of Kareem (11.5-14.5) % MPV (7.4-10.4) fL Immature Gran % (Auto) % Neut % (Auto) % Lymph % (Auto) % [place] % (Auto) % Eos % (Auto) % Baso % (Auto) % Neut # (Auto) (1.4-6.5) K/uL Lymph # (Auto) (1.2-3.4) K/uL [place] # (Auto) (0.11-0.59) K/uL Eos # (Auto) (0-0.5) K/uL Baso # (Auto) (0-0.2) K/uL Immature Gran # (Auto) (0.00-0.02) K/uL PT (9.0-12.0) Seconds INR (0.9-1.1) APTT (21.0-31.0) Seconds PTT Ratio Sodium (136-145) mmol/L Potassium (3.5-5.1) mmol/L Chloride (98-107) mmol/L Carbon Dioxide (21-32) mmol/L Anion Gap (3-11) BUN (7-18) mg/dl Creatinine (0.6-1.2) mg/dl Est Cr Clr Drug Dosing ml/min Est GFR ( Amer) Est GFR (Non-Af Amer) BUN/Creatinine Ratio (10-20) Glucose (70-99) mg/dl POC Glucose 95 136 H (70-99) mg/dl Estimat Average Glucose mg/dl Hemoglobin A1c (4.5-5.6) % Calcium (8.5-10.1) mg/dl Urine Color Urine Appearance (Clear) Urine pH (4.5-7.5) Ur Specific [place] (1.000-1.030) Urine Protein (Negative) Urine Glucose (UA) (Negative) Urine Ketones (Negative) Urine Blood (Negative) Urine Nitrite (Negative) Urine Bilirubin (Negative) Urine Urobilinogen (Negative) Ur Leukocyte Esterase (Negative) Blood Type Antibody Screen
[2019-12-06] MEDS ORDERED: CARBOHYDRATES FOR HYPOGLYCEMIA PO PRN ×2 (16:15→16:18)
[2019-12-06] MEDS ORDERED: DEXTROSE 50% 50 ML SYRINGE IV PRN ×2 (16:15→16:18)
[2019-12-06] MEDS ORDERED: GLUCOSE 10 TABS/TUBE PO PRN ×2 (16:15→16:18)
[2019-12-06] MEDS ORDERED: GLUCOSE 40% GEL 15 GM TUBE PO PRN ×2 (16:15→16:18)
[2019-12-06] MEDS ORDERED: GLUCAGON FOR INJ 1 MG VIAL IM PRN (16:15)
[2019-12-06] MEDS ORDERED: GLUCAGON FOR INJ 1 MG VIAL SQ PRN (16:18)
[2019-12-06] MEDS ORDERED: INSULIN ASPART 100 UNITS/ML 3 ML PEN SC SCH (16:30)
[2019-12-06 17:09] LABS: Hematocrit (blood only) 33.8 % (37-47); Hemoglobin 10.2 g/dL (12.0-16.0); Mean Corpuscular Hemoglobin 23.5 pg (25-34); Mean Corpuscular Hgb Conc 30.2 g/dL (32-36); Mean Corpuscular Volume 77.9 fL (80-100); Mean Platelet Volume 10.1 fL (7.4-10.4); Platelet Count 238 K/uL (130-400); RDW Coefficient of Variation 17.1 % (11.5-14.5); Red Blood Count 4.34 M/uL (4.2-5.4); White Blood Count 6.78 K/uL (4.8-10.8)
[2019-12-06] MEDS: KETOROLAC TROMETHAMINE 15 MG/ML VIAL IV SCH ×2 (17:22→21:08)
[2019-12-06 17:34] LABS: Albumin Level 3.1 gm/dl (3.4-5.0); BUN Creatinine Ratio 7.8 (10-20); Calcium 8.6 mg/dl (8.5-10.1); Creatinine Clr Calc Pharmacy 62.4 ml/min; Est GFR (African American) 79.8; Est GFR (Non-African American) 68.9; Magnesium 1.9 mg/dl (1.8-2.4); Potassium 3.7 mmol/L (3.5-5.1)
[2019-12-06 17:37] LABS: Albumin Globulin Ratio 0.8 (0.9-2); Bilirubin,Total 0.4 mg/dl (0.2-1); Globulin 3.7 gm/dl (2.5-4.0); Phosphorus 3.8 mg/dl (2.5-4.9); Total Protein 6.8 gm/dl (6.4-8.2)
[2019-12-06] MEDS: HYDROCODONE/ACETAMOPHEN 5/325MG TAB PO PRN ×2 (17:37→21:45)
[2019-12-06] MEDS: INSULIN ASPART 100 UNITS/ML 3 ML PEN SC SCH ×2 (18:19→21:08)
[2019-12-06] MEDS: ceFAZolin 2000MG 2,000 MG/15 ML SYR IV SCH (19:01)
[2019-12-06] MEDS: amLODIPine BESYLATE 5 MG TAB PO SCH (20:27)
[2019-12-06] MEDS: PANTOprazole 40 MG TAB PO SCH (20:28)
[2019-12-06] MEDS: MONTELUKAST SODIUM 10 MG TABLET PO SCH (20:28)
[2019-12-06] MEDS: METOCLOPRAMIDE HCL 5 MG TABLET PO SCH (20:28)
[2019-12-06] MEDS: DOCUSATE SODIUM/SENNA 50/8.6MG TAB PO SCH (20:28)
[2019-12-07] MEDS: ceFAZolin 2000MG 2,000 MG/15 ML SYR IV SCH (02:42)
[2019-12-07] MEDS: KETOROLAC TROMETHAMINE 15 MG/ML VIAL IV SCH ×2 (03:10→09:59)
[2019-12-07] MEDS: SODIUM CHLORIDE 0.9% 1000ML 1,000 ML IV SCH (03:17)
[2019-12-07 06:02] LABS: Basophils # (auto) 0.01 K/uL (0-0.2); Basophils % (auto) 0.1 %; Hematocrit (blood only) 32.4 % (37-47); Hemoglobin 9.8 g/dL (12.0-16.0); Immature Granulocytes # (auto) 0.04 K/uL (0.00-0.02); Immature Granulocytes % (auto) 0.3 %; Lymphocytes # (auto) 1.38 K/uL (1.2-3.4); Lymphocytes % (auto) 9.9 %; Mean Corpuscular Hemoglobin 23.6 pg (25-34); Mean Corpuscular Hgb Conc 30.2 g/dL (32-36); Mean Corpuscular Volume 78.1 fL (80-100); Mean Platelet Volume 10.4 fL (7.4-10.4); Monocytes # (auto) 0.59 K/uL (0.11-0.59); Monocytes % (auto) 4.2 %; Neutrophils # (auto) 11.92 K/uL (1.4-6.5); Neutrophils % (auto) 85.5 %; Platelet Count 303 K/uL (130-400); RDW Coefficient of Variation 17.1 % (11.5-14.5); RDW Standard Deviation 49.2 fL (36.4-46.3); Red Blood Count 4.15 M/uL (4.2-5.4); White Blood Count 13.94 K/uL (4.8-10.8)
[2019-12-07] MEDS: POLYETHYLENE (MIRALAX) 17 GM PACK PO SCH ×3 (06:08→18:04)
[2019-12-07 06:32] LABS: BUN Creatinine Ratio 10.3 (10-20); Calcium 8.5 mg/dl (8.5-10.1); Creatinine Clr Calc Pharmacy 67.4 ml/min; Est GFR (African American) 87.6; Est GFR (Non-African American) 75.5; Potassium 4.1 mmol/L (3.5-5.1)
[2019-12-07 07:07] LABS: Estimated Average Glucose 126 mg/dl
--- NOTE | 2019-12-07 08:54 | Orthopedic Progress Note ---
Date of Service December 07, 2019 Assessment & Plan (1) Lumbar disc herniation with radiculopathy: Admission and Anticipated Discharge Date Admission Date: December 06, 2019 Today we will initiate physical therapy monitor her ARBEN output anticipate discharge home tomorrow. Subjective Back pain controlled leg symptoms markedly improved. Physical Exam Physical Exam: Patient has good strength testing is in the chair at the bedside. Appears comfortable. Results & Data ([facility]) Vital Signs (Past 12 Hours) Vital Signs Temp Pulse Resp BP Pulse Ox 12/07/19 08:03 36.5 C 78 16 119/74 93 12/07/19 03:14 36.5 C 77 20 119/75 91 12/06/19 23:24 36.4 C L 78 16 121/75 93
[2019-12-07] MEDS: METOCLOPRAMIDE HCL 5 MG TABLET PO SCH ×2 (08:58→20:40)
[2019-12-07] MEDS: CYANOCOBALAMIN 500 MCG TABLET (VITAMIN B-12) PO SCH (08:59)
[2019-12-07] MEDS: PANTOprazole 40 MG TAB PO SCH ×2 (08:59→20:39)
[2019-12-07] MEDS: ASCORBIC ACID 500 MG TAB PO SCH (08:59)
[2019-12-07] MEDS: LOSARTAN POTASSIUM 50 MG TAB PO SCH (08:59)
[2019-12-07] MEDS: INSULIN ASPART 100 UNITS/ML 3 ML PEN SC SCH ×4 (09:02→20:53)
[2019-12-07] MEDS: DEXAMETHASONE SOD PHOSPHATE 8 MG in SYRINGE 0 ML IV SCH (09:26)
--- NOTE | 2019-12-07 11:08 | Hospitalist Progress Note ---
Date of Service December 07, 2019 Assessment & Plan (1) S/P spinal surgery: This is a 54yo F with a PMH of HTN, DM II, asthma, idiopathic pulmonary fibrosis, GERD, anxiety and other medical problems listed below who is s/p lumbar decompression and fusion by Dr. Holder. s/p lumbar decompression and fusion by Dr. Holder Pt is doing well post-operatively Per ortho for pain control, wound care, anticoagulation and activities (2) HTN (hypertension): Normotensive. Continue home losartan and amlodipine (3) DM type 2 (diabetes mellitus, type 2): A1C 6.0, well controlled Hold metformin SSI while in-patient resume metformin on discharge (4) Asthma: Rarely uses rescue inhaler at home. Albuterol ordered PRN (5) Idiopathic pulmonary fibrosis: Does not require home O2. Not on steroids (6) Anxiety: Xanax held by primary service. Ativan PRN (7) GERD (gastroesophageal reflux disease): Continue Prevacid and Reglan BID Toshia vaginitis - pt reports symptoms of vag. pruritus to nursing staff -will provide monistat cream and monitor for symptom resolution PCP: Minor Dispo: Per primary service Admission and Anticipated Discharge Date Admission Date: December 06, 2019 Subjective Pt is sitting up in bed in NAD. Denies any fever, chills, chest pain, shortness of breath, abd. pain, nausea or vomiting. Pt is urinating w/o difficulty, having BMs. She was ambulating in hallway today. No dizziness or lightheadedness. Daughter and granddaughter visiting at the bedside. Update: Pt later reported to nursing staff vaginal pruritus and concern for yeast infection. Review of Systems Review of Systems: All systems reviewed & are unremarkable except as noted in HPI & below Constitutional: no fever and no chills Respiratory: no cough and no dyspnea Cardiovascular: no chest pain and no palpitations Gastrointestinal: no abdominal pain, no nausea and no vomiting Physical Exam Physical Exam: General Appearance: WD/WN, vitals as above, NAD, sitting up in bed, pleasant, conversing easily Head: normocephalic, atraumatic Eyes: PERRL, EOMI, conjunctivae normal, anicteric sclerae ENT: external ear and nose normal, oropharynx normal Neck: normal visual inspection, trachea midline, no thyromegaly Respiratory: normal respiratory effort, lungs clear to auscultation, no wheeze, rales, rhonchi. No accessory muscle use Cardiovascular: rrr, no murmur, normal peripheral pulses, no BLE edema. Vessels: no JVD Abdomen/GI: normal bowel sounds, soft, nontender Extremities/Musculoskeletal: +ARBEN drain with serosanguineous output. No cyanosis or clubbing, extremities motor strength 5/5 Neurologic: PERRL, EOMI, CN's II-XI intact bilaterally and moves all extremities Psychiatric: A+Ox3, euthymic affect Skin: no rashes, normal color, warm/dry Results & Data Results & Data ([facility]) Vital Signs (Past 12 Hours) Vital Signs Temp Pulse Resp BP BP Pulse Ox 12/07/19 08:57 81 117/77 12/07/19 08:03 36.5 C 78 16 119/74 93 12/07/19 03:14 36.5 C 77 20 119/75 91 12/06/19 23:24 36.4 C L 78 16 121/75 93 Laboratory Results 12/07/19 12/07/19 12/07/19 Range/Units 08:21 05:22 05:22 WBC (4.8-10.8) K/uL RBC (4.2-5.4) M/uL Hgb (12.0-16.0) g/dL Hct (37-47) % MCV (80-100) fL MCH (25-34) pg MCHC (32-36) g/dL RDW Std Deviation (36.4-46.3) fL RDW Coeff of Kareem (11.5-14.5) % Plt Count (130-400) K/uL MPV (7.4-10.4) fL Immature Gran % (Auto) % Neut % (Auto) % Lymph % (Auto) % Glynn % (Auto) % Eos % (Auto) % Baso % (Auto) % Neut # (Auto) (1.4-6.5) K/uL Lymph # (Auto) (1.2-3.4) K/uL Glynn # (Auto) (0.11-0.59) K/uL Eos # (Auto) (0-0.5) K/uL Baso # (Auto) (0-0.2) K/uL Immature Gran # (Auto) (0.00-0.02) K/uL Sodium 138 (136-145) mmol/L Potassium 4.1 (3.5-5.1) mmol/L Chloride 106 (98-107) mmol/L Carbon Dioxide 26 (21-32) mmol/L Anion Gap 6.0 (3-11) BUN 9 (7-18) mg/dl Creatinine 0.88 (0.6-1.2) mg/dl Est Cr Clr Drug Dosing 67.4 ml/min Est GFR ( Amer) 87.6 Est GFR (Non-Af Amer) 75.5 BUN/Creatinine Ratio 10.3 (10-20) Glucose 138 H (70-99) mg/dl POC Glucose 135 H (70-99) mg/dl Estimat Average Glucose 126 mg/dl Hemoglobin A1c 6.0 H (4.5-5.6) % Calcium 8.5 (8.5-10.1) mg/dl Phosphorus (2.5-4.9) mg/dl Magnesium (1.8-2.4) mg/dl Total Bilirubin (0.2-1) mg/dl AST (15-37) U/L ALT (12-78) U/L Alkaline Phosphatase (45-117) U/L Total Protein (6.4-8.2) gm/dl Albumin (3.4-5.0) gm/dl Globulin (2.5-4.0) gm/dl Albumin/Globulin Ratio (0.9-2) 12/07/19 12/06/19 12/06/19 Range/Units 05:22 21:00 16:55 WBC 13.94 H (4.8-10.8) K/uL RBC 4.15 L (4.2-5.4) M/uL Hgb 9.8 L (12.0-16.0) g/dL Hct 32.4 L (37-47) % MCV 78.1 L (80-100) fL MCH 23.6 L (25-34) pg MCHC 30.2 L (32-36) g/dL RDW Std Deviation 49.2 H (36.4-46.3) fL RDW Coeff of Kareem 17.1 H (11.5-14.5) % Plt Count 303 (130-400) K/uL MPV 10.4 (7.4-10.4) fL Immature Gran % (Auto) 0.3 % Neut % (Auto) 85.5 % Lymph % (Auto) 9.9 % Glynn % (Auto) 4.2 % Eos % (Auto) 0.0 % Baso % (Auto) 0.1 % Neut # (Auto) 11.92 H (1.4-6.5) K/uL Lymph # (Auto) 1.38 (1.2-3.4) K/uL Glynn # (Auto) 0.59 (0.11-0.59) K/uL Eos # (Auto) 0.00 (0-0.5) K/uL Baso # (Auto) 0.01 (0-0.2) K/uL Immature Gran # (Auto) 0.04 H (0.00-0.02) K/uL Sodium 140 (136-145) mmol/L Potassium 3.7 (3.5-5.1) mmol/L Chloride 107 (98-107) mmol/L Carbon Dioxide 25 (21-32) mmol/L Anion Gap 8.0 (3-11) BUN 7 (7-18) mg/dl Creatinine 0.95 (0.6-1.2) mg/dl Est Cr Clr Drug Dosing 62.4 ml/min Est GFR ( Amer) 79.8 Est GFR (Non-Af Amer) 68.9 BUN/Creatinine Ratio 7.8 L (10-20) Glucose 186 H (70-99) mg/dl POC Glucose 162 H (70-99) mg/dl Estimat Average Glucose mg/dl Hemoglobin A1c (4.5-5.6) % Calcium 8.6 (8.5-10.1) mg/dl Phosphorus 3.8 (2.5-4.9) mg/dl Magnesium 1.9 (1.8-2.4) mg/dl Total Bilirubin 0.4 (0.2-1) mg/dl AST 15 (15-37) U/L ALT 19 (12-78) U/L Alkaline Phosphatase 86 (45-117) U/L Total Protein 6.8 (6.4-8.2) gm/dl Albumin 3.1 L (3.4-5.0) gm/dl Globulin 3.7 (2.5-4.0) gm/dl Albumin/Globulin Ratio 0.8 L (0.9-2) 12/06/19 12/06/19 12/06/19 Range/Units 16:55 16:21 14:29 WBC 6.78 (4.8-10.8) K/uL RBC 4.34 (4.2-5.4) M/uL Hgb 10.2 L (12.0-16.0) g/dL Hct 33.8 L (37-47) % MCV 77.9 L (80-100) fL MCH 23.5 L (25-34) pg MCHC 30.2 L (32-36) g/dL RDW Std Deviation 49.0 H (36.4-46.3) fL RDW Coeff of Kareem 17.1 H (11.5-14.5) % Plt Count 238 (130-400) K/uL MPV 10.1 (7.4-10.4) fL Immature Gran % (Auto) % Neut % (Auto) % Lymph % (Auto) % Glynn % (Auto) % Eos % (Auto) % Baso % (Auto) % Neut # (Auto) (1.4-6.5) K/uL Lymph # (Auto) (1.2-3.4) K/uL Glynn # (Auto) (0.11-0.59) K/uL Eos # (Auto) (0-0.5) K/uL Baso # (Auto) (0-0.2) K/uL Immature Gran # (Auto) (0.00-0.02) K/uL Sodium (136-145) mmol/L Potassium (3.5-5.1) mmol/L Chloride (98-107) mmol/L Carbon Dioxide (21-32) mmol/L Anion Gap (3-11) BUN (7-18) mg/dl Creatinine (0.6-1.2) mg/dl Est Cr Clr Drug Dosing ml/min Est GFR ( Amer) Est GFR (Non-Af Amer) BUN/Creatinine Ratio (10-20) Glucose (70-99) mg/dl POC Glucose 179 H 136 H (70-99) mg/dl Estimat Average Glucose mg/dl Hemoglobin A1c (4.5-5.6) % Calcium (8.5-10.1) mg/dl Phosphorus (2.5-4.9) mg/dl Magnesium (1.8-2.4) mg/dl Total Bilirubin (0.2-1) mg/dl AST (15-37) U/L ALT (12-78) U/L Alkaline Phosphatase (45-117) U/L Total Protein (6.4-8.2) gm/dl Albumin (3.4-5.0) gm/dl Globulin (2.5-4.0) gm/dl Albumin/Globulin Ratio (0.9-2) 12/06/19 Range/Units 12:00 WBC (4.8-10.8) K/uL RBC (4.2-5.4) M/uL Hgb (12.0-16.0) g/dL Hct (37-47) % MCV (80-100) fL MCH (25-34) pg MCHC (32-36) g/dL RDW Std Deviation (36.4-46.3) fL RDW Coeff of Kareem (11.5-14.5) % Plt Count (130-400) K/uL MPV (7.4-10.4) fL Immature Gran % (Auto) % Neut % (Auto) % Lymph % (Auto) % Glynn % (Auto) % Eos % (Auto) % Baso % (Auto) % Neut # (Auto) (1.4-6.5) K/uL Lymph # (Auto) (1.2-3.4) K/uL Glynn # (Auto) (0.11-0.59) K/uL Eos # (Auto) (0-0.5) K/uL Baso # (Auto) (0-0.2) K/uL Immature Gran # (Auto) (0.00-0.02) K/uL Sodium (136-145) mmol/L Potassium (3.5-5.1) mmol/L Chloride (98-107) mmol/L Carbon Dioxide (21-32) mmol/L Anion Gap (3-11) BUN (7-18) mg/dl Creatinine (0.6-1.2) mg/dl Est Cr Clr Drug Dosing ml/min Est GFR ( Amer) Est GFR (Non-Af Amer) BUN/Creatinine Ratio (10-20) Glucose (70-99) mg/dl POC Glucose 95 (70-99) mg/dl Estimat Average Glucose mg/dl Hemoglobin A1c (4.5-5.6) % Calcium (8.5-10.1) mg/dl Phosphorus (2.5-4.9) mg/dl Magnesium (1.8-2.4) mg/dl Total Bilirubin (0.2-1) mg/dl AST (15-37) U/L ALT (12-78) U/L Alkaline Phosphatase (45-117) U/L Total Protein (6.4-8.2) gm/dl Albumin (3.4-5.0) gm/dl Globulin (2.5-4.0) gm/dl Albumin/Globulin Ratio (0.9-2) Medications Administered Current Inpatient Medications Acetaminophen (Acetaminophen 500 Mg Tab) 1,000 mg PO Q8H PRN PRN Reason: MILD Pain Scale 1,2,3 & Pre PT Stop: 01/05/20 15:43 Hydrocodone Bitart/Acetaminophen (Hydrocodone/Acetamophen 5/325mg Tab) 1 - 2 tab PO Q4H PRN PRN Reason: Moderate-Severe Pain & Pre PT Stop: 12/20/19 15:43 Last Admin: 12/06/19 21:45 Dose: 2 tab Documented by: Al Hydrox/Mg Hydrox/Simethicone (Aluminum/Magnesium Susp 30 Ml Udc) 30 ml PO Q6H PRN PRN Reason: Dyspepsia Stop: 01/05/20 15:43 Albuterol (Albuterol Hfa 8 Gm Inhaler) 1 puffs INH QIDR PRN PRN Reason: sob Stop: 01/05/20 15:43 Amlodipine Besylate (Amlodipine Besylate 5 Mg Tab) [address] [facility] Stop: 01/05/20 20:59 Last Admin: 12/06/19 20:27 Dose: 5 mg Documented by: Ascorbic Acid (Ascorbic Acid 500 Mg Tab) [address] [facility] Stop: 01/06/20 08:59 Last Admin: 12/07/19 08:59 Dose: 500 mg Documented by: Bisacodyl (Bisacodyl 10 Mg Supp) 10 mg IN DAILY PRN PRN Reason: Constipation Stop: 01/05/20 15:43 Cyanocobalamin (Cyanocobalamin 500 Mcg Tablet (Vitamin B-12)) [address] [facility] Stop: 01/06/20 08:59 Last Admin: 12/07/19 08:59 Dose: 500 mcg Documented by: Dextrose (Dextrose 50% 50 Ml Syringe) 25 - 50 ml IV UD PRN; Protocol PRN Reason: Hypoglycemia Protocol Stop: 01/05/20 16:14 Diphenhydramine HCl (Diphenhydramine Hcl 25 Mg Cap) 25 mg PO Q6H PRN PRN Reason: Allergic Rhinitis/Insomnia Stop: 01/05/20 15:43 Famotidine (Famotidine 20 Mg Tab) 20 mg PO Q12H PRN PRN Reason: Dyspepsia Stop: 01/05/20 15:43 Glucagon (Glucagon For Inj 1 Mg Vial) 1 mg IM UD PRN; Protocol PRN Reason: Hypoglycemia Protocol Stop: 01/05/20 16:14 Glucose (Glucose 40% Gel 15 Gm Tube) 15 - 30 gm PO UD PRN; Protocol PRN Reason: Hypoglycemia Protocol Stop: 01/05/20 16:14 Glucose (Glucose 10 Tabs/Tube) 4 - 8 tabs PO UD PRN; Protocol PRN Reason: Hypoglycemia Protocol Stop: 01/05/20 16:14 Hydromorphone HCl (Hydromorphone Inj 0.5 Mg/0.5 Ml Syr) 0.5 mg IV Q3H PRN PRN Reason: MOD pain (scale 4-6) & Pre PT Stop: 12/20/19 15:43 Hydromorphone HCl (Hydromorphone Inj 1 Mg/Ml Syringe) 1 mg IV Q3H PRN PRN Reason: severe pain (scale 7-10) Stop: 12/20/19 15:43 Hydroxyzine HCl (Hydroxyzine Hcl 25 Mg Tab) 25 mg PO Q8H PRN PRN Reason: Anxiety Stop: 01/05/20 15:43 Lorazepam (Ativan) 0.5 mg in 1 mls @ 0.5 mls/min IV Q8H PRN PRN Reason: Sedation/Anxiety Stop: 01/05/20 15:43 Acetaminophen (Ofirmev) 1,000 mg in 100 mls @ 400 mls/hr IV Q8H PRN PRN Reason: MILD Pain Rating 1,2,3 Stop: 12/07/19 15:43 Last Infusion: 12/07/19 00:35 Dose: Infused Documented by: Promethazine HCl 12.5 mg/ (Sodium Chloride) 50.5 mls @ 204 mls/hr IV Q6H PRN PRN Reason: Nausea &/or Vomiting Stop: 01/05/20 15:43 Dexamethasone Sodium Phosphate (8 mg/ Syringe) 2 mls @ 1 mls/min IV DAILY [facility] Stop: 01/06/20 08:59 Last Admin: 12/07/19 09:26 Dose: 1 mls/min Documented by: Influenza Virus Vaccine Quadrival (Do Not Administer Flu Vaccine) 1 ea N/A PRN PRN PRN Reason: Notification Stop: 01/05/20 15:43 Insulin Aspart (Insulin Aspart 100 Units/Ml 3 Ml Pen) [address] [facility] Stop: 01/05/20 16:29 Last Admin: 12/07/19 09:02 Dose: 4 units Documented by: Lorazepam (Lorazepam 0.5 Mg Tab) 0.5 mg PO Q8H PRN PRN Reason: Sedation/Anxiety Stop: 01/05/20 15:43 Last Admin: 12/06/19 20:28 Dose: 0.5 mg Documented by: Losartan Potassium (Losartan Potassium 50 Mg Tab) [address] [facility] Stop: 01/06/20 08:59 Last Admin: 12/07/19 08:59 Dose: 50 mg Documented by: Magnesium Hydroxide (Magnesium Hydroxide Susp 30 Ml Udc) 30 ml PO DAILY PRN PRN Reason: Constipation Stop: 01/05/20 15:43 Metoclopramide HCl (Metoclopramide Hcl 5 Mg Tablet) [address] [facility] Stop: 01/05/20 20:59 Last Admin: 12/07/19 08:58 Dose: 5 mg Documented by: Metoclopramide HCl (Metoclopramide Hcl Inj 5 Mg/Ml 2 Ml Vial) 10 mg IV Q6H PRN PRN Reason: Nausea &/or Vomiting Stop: 01/05/20 15:43 Miscellaneous (Carbohydrates For Hypoglycemia ) 15 - 30 gm PO UD PRN PRN Reason: Hypoglycemia Treatment Stop: 01/05/20 16:14 Montelukast Sodium (Montelukast Sodium 10 Mg Tablet) [address] [facility] Stop: 01/05/20 20:59 Last Admin: 12/06/19 20:28 Dose: 10 mg Documented by: Naloxone HCl (Naloxone Hcl 0.4 Mg/1 Ml Vial/Carp) 0.1 mg IV Q5M PRN; Protocol PRN Reason: Oversedation/Resp Depression Stop: 01/05/20 15:43 Ondansetron HCl (Ondansetron Inj 2 Mg/Ml 2 Ml Vial) 4 mg IV Q6H PRN PRN Reason: Nausea &/or Vomiting Stop: 01/05/20 15:43 Ondansetron HCl (Ondansetron 4 Mg Od Tab) 4 mg PO Q6H PRN PRN Reason: Nausea Stop: 01/05/20 15:43 Pantoprazole Sodium (Pantoprazole 40 Mg Tab) 40 mg PO BID JEANETTE; Protocol Stop: 01/05/20 20:59 Last Admin: 12/07/19 08:59 Dose: 40 mg Documented by: Pneumococcal Polyvalent Vaccine (Do Not Administer Pneumococcal Vaccine) 1 ea N/A PRN PRN PRN Reason: Notification Stop: 01/05/20 15:43 Polyethylene Glycol (Polyethylene (Miralax) 17 Gm Pack) 17 gm PO Q6 JEANETTE Stop: 01/06/20 05:59 Last Admin: 12/07/19 06:08 Dose: 17 gm Documented by: Senna/Docusate Sodium (Docusate Sodium/Senna 50/8.6mg Tab) 2 tab PO HS JEANETTE Stop: 01/05/20 20:59 Last Admin: 12/06/19 20:28 Dose: 2 tab Documented by: Sodium Biphosphate/Sodium Phosphate (Sod Phosphate/Sod Biphosphate Enema 132 Ml Btl) 132 ml IN ONE PRN PRN Reason: Constipation Stop: 01/05/20 15:43 Tramadol HCl (Tramadol Hcl 50 Mg Tablet) 50 - 100 mg PO Q4H PRN PRN Reason: Moderate-Severe Pain & Pre PT Stop: 01/05/20 15:43
[2019-12-07] MEDS: HYDROCODONE/ACETAMOPHEN 5/325MG TAB PO PRN (12:31)
--- NOTE | 2019-12-07 13:50 | Electrocardiogram Report ---
Test Reason : Blood Pressure : / mmHG Vent. Rate : 094 BPM Atrial Rate : 094 BPM P-R Int : 158 ms QRS Dur : 076 ms QT Int : 360 ms P-R-T Axes : 022 022 022 degrees QTc Int : 450 ms Normal sinus rhythm Normal ECG When compared with ECG of 22-NOV-2019 12:35, Questionable change in QRS axis Confirmed by Dominguez Orozco ([id number]) on 12/07/2019 1:50:08 PM Referred By: Horace Holder Confirmed By:Dominguez Orozco
[2019-12-07] MEDS: amLODIPine BESYLATE 5 MG TAB PO SCH (20:39)
[2019-12-07] MEDS: DOCUSATE SODIUM/SENNA 50/8.6MG TAB PO SCH (20:39)
[2019-12-07] MEDS: MONTELUKAST SODIUM 10 MG TABLET PO SCH (20:40)
[2019-12-07] MEDS: MICONAZOLE NITRATE 2% CR 30 GM TUBE EXT SCH (20:59)
[2019-12-07] MEDS ORDERED: MICONAZOLE NITRATE 2% VAG CR 45 GM TUBE PV SCH (21:00)
[2019-12-07] MEDS ORDERED: MICONAZOLE NITRATE-7 (100 MG EA SUPP) BOX PV SCH (21:00)
[2019-12-08] MEDS: HYDROCODONE/ACETAMOPHEN 5/325MG TAB PO PRN ×2 (00:07→12:31)
[2019-12-08] MEDS: CYANOCOBALAMIN 500 MCG TABLET (VITAMIN B-12) PO SCH (08:36)
[2019-12-08] MEDS: METOCLOPRAMIDE HCL 5 MG TABLET PO SCH (08:36)
[2019-12-08] MEDS: DEXAMETHASONE SOD PHOSPHATE 8 MG in SYRINGE 0 ML IV SCH (08:36)
[2019-12-08] MEDS: ASCORBIC ACID 500 MG TAB PO SCH (08:36)
[2019-12-08] MEDS: LOSARTAN POTASSIUM 50 MG TAB PO SCH (08:36)
[2019-12-08] MEDS: MICONAZOLE NITRATE 2% CR 30 GM TUBE EXT SCH (08:37)
[2019-12-08] MEDS: PANTOprazole 40 MG TAB PO SCH (08:37)
[2019-12-08] MEDS: INSULIN ASPART 100 UNITS/ML 3 ML PEN SC SCH ×2 (08:42→12:34)
--- NOTE | 2019-12-08 08:42 | Hospitalist Progress Note ---
Date of Service December 08, 2019 Assessment & Plan (1) S/P spinal surgery: This is a 54yo F with a PMH of HTN, DM II, asthma, idiopathic pulmonary fibrosis, GERD, anxiety and other medical problems listed below who is POD#2 s/p lumbar decompression and fusion by Dr. Holder. POD#2 s/p lumbar decompression and fusion by Dr. Holder Pt is doing well post-operatively Per ortho for pain control, wound care, anticoagulation and activities Monitor H&H (EBL 25ml), hgb 9.8, continue incentive spirometry, PT/OT when appropriate Plan is for d/c to home today (2) HTN (hypertension): Normotensive. Continue home losartan and amlodipine (3) DM type 2 (diabetes mellitus, type 2): A1C 6.0, well controlled Hold metformin SSI while in-patient BSG 99 this a.m. resume metformin when discharged (4) Asthma: Rarely uses rescue inhaler at home. Albuterol ordered PRN (5) Idiopathic pulmonary fibrosis: Does not require home O2. Not on steroids (6) Anxiety: Xanax held by primary service. Ativan PRN (7) GERD (gastroesophageal reflux disease): Continue Prevacid and Reglan BID PCP: Minor Dispo: Per primary service Patient seen in collaboration with Dr. Nino. Please see addendum. Admission and Anticipated Discharge Date Admission Date: December 06, 2019 Supervising Physician Co-Signing Physician Notes Attending addendum The patient was seen and examined in medical floor She is a status post L4-5 decompression and fusion on 12/06/2019 Denies any symptoms as of today and the numbness and tingling in the left lower extremity have been improving She will be discharged today On examination Lying in bed without any distress Hemodynamically stable Chest-clear Heart-S1-S2, regular Abdomen-benign Her labs and imaging studies reviewed Medically stable to be discharged Agree with the assessment and plan as outlined above by PEACE Sauceda DR Subjective Patient was seen and examined in room 305. Follow-up lumbar procedure by Dr. Holder. POD #2. Currently she feels well. Believes plan is to be discharged home today. Mild incisional discomfort. 2 BMs yesterday. Denies chest pain, shortness of breath, nausea, vomiting, abdominal pain, fever, chills, sweats. Overall good appetite. Ambulating without difficulty and feels therapy going well. Review of Systems Review of Systems: All systems reviewed & are unremarkable except as noted in HPI & below Physical Exam Physical Exam: Gen: WD/WN, NAD, A&O x3 HEENT: Normocephalic, atraumatic, conjunctivae moist, sclerae anicteric, mucous membranes moist. Lung: Clear to Auscultation bilaterally, no wheezes/rales/rhonchi Heart: Regular rate, regular rhythm, no murmurs, rubs, or gallops Abdomen: Soft, NT, ND +BS x 4 Extremities: No edema, ARBEN drain with serosanguineous drainage, lumbar dressing CDI Skin: Warm, no rash, negative turgor. Results & Data Results & Data ([facility]) Vital Signs (Past 12 Hours) Vital Signs Temp Pulse Resp BP Pulse Ox 12/08/19 07:27 37.4 C 61 17 134/81 94 12/07/19 23:36 37.1 C 75 16 125/77 94 Medications Administered Hydrocodone Bitart/Acetaminophen (Hydrocodone/Acetamophen 5/325mg Tab) 1 - 2 tab PO Q4H PRN PRN Reason: Moderate-Severe Pain & Pre PT Stop: 12/20/19 15:43 Last Admin: 12/08/19 00:07 Dose: 2 tab Documented by: [id number] Admin: 12/07/19 12:31 Dose: 1 tab Documented by: [id number] Admin: 12/06/19 21:45 Dose: 2 tab Documented by: [id number] Admin: 12/06/19 17:37 Dose: 2 tab Documented by: [id number] Amlodipine Besylate (Amlodipine Besylate 5 Mg Tab) 5 mg PO QPM JEANETTE Stop: 01/05/20 20:59 Last Admin: 12/07/19 20:39 Dose: 5 mg Documented by: [id number] Admin: 12/06/19 20:27 Dose: 5 mg Documented by: [id number] Ascorbic Acid (Ascorbic Acid 500 Mg Tab) 500 mg PO QAM JEANETTE Stop: 01/06/20 08:59 Last Admin: 12/08/19 08:36 Dose: 500 mg Documented by: [id number] Admin: 12/07/19 08:59 Dose: 500 mg Documented by: [id number] Cyanocobalamin (Cyanocobalamin 500 Mcg Tablet (Vitamin B-12)) 500 mcg PO QAM JEANETTE Stop: 01/06/20 08:59 Last Admin: 12/08/19 08:36 Dose: 500 mcg Documented by: [id number] Admin: 12/07/19 08:59 Dose: 500 mcg Documented by: [id number] Dexamethasone Sodium Phosphate (8 mg/ Syringe) 2 mls @ 1 mls/min IV DAILY JEANETTE Stop: 01/06/20 08:59 Last Admin: 12/08/19 08:36 Dose: 1 mls/min Documented by: [id number] Admin: 12/07/19 09:26 Dose: 1 mls/min Documented by: [id number] Insulin Aspart (Insulin Aspart 100 Units/Ml 3 Ml Pen) 0 units SC ACHS JEANETTE Stop: 01/05/20 16:29 Last Admin: 12/08/19 08:42 Dose: 4 units Documented by: [id number] Cosigned by: [id number] Admin: 12/07/19 20:53 Dose: 1 units Documented by: [id number] Cosigned by: [id number] Admin: 12/07/19 18:02 Dose: 7 units Documented by: [id number] Cosigned by: [id number] Admin: 12/07/19 12:33 Dose: 3 units Documented by: [id number] Cosigned by: [id number] Admin: 12/07/19 09:02 Dose: 4 units Documented by: [id number] Cosigned by: [id number] Admin: 12/06/19 21:08 Dose: 2 units Documented by: [id number] Cosigned by: [id number] Admin: 12/06/19 18:19 Dose: 9 units Documented by: [id number] Cosigned by: [id number] Lorazepam (Lorazepam 0.5 Mg Tab) 0.5 mg PO Q8H PRN PRN Reason: Sedation/Anxiety Stop: 01/05/20 15:43 Last Admin: 12/06/19 20:28 Dose: 0.5 mg Documented by: [id number] Losartan Potassium (Losartan Potassium 50 Mg Tab) 50 mg PO QAM JEANETTE Stop: 01/06/20 08:59 Last Admin: 12/08/19 08:36 Dose: 50 mg Documented by: [id number] Admin: 12/07/19 08:59 Dose: 50 mg Documented by: [id number] Metoclopramide HCl (Metoclopramide Hcl 5 Mg Tablet) 5 mg PO BID JEANETTE Stop: 01/05/20 20:59 Last Admin: 12/08/19 08:36 Dose: 5 mg Documented by: [id number] Admin: 12/07/19 20:40 Dose: 5 mg Documented by: [id number] Admin: 12/07/19 08:58 Dose: 5 mg Documented by: [id number] Admin: 12/06/19 20:28 Dose: 5 mg Documented by: [id number] Miconazole Nitrate (Miconazole Nitrate 2% Cr 30 Gm Tube) 1 appln EXT BID JEANETTE Stop: 01/06/20 20:59 Last Admin: 12/08/19 08:37 Dose: 1 appln Documented by: [id number] Admin: 12/07/19 20:59 Dose: 1 appln Documented by: [id number] Montelukast Sodium (Montelukast Sodium 10 Mg Tablet) 10 mg PO PM [facility] Stop: 01/05/20 20:59 Last Admin: 12/07/19 20:40 Dose: 10 mg Documented by: [id number] Admin: 12/06/19 20:28 Dose: 10 mg Documented by: [id number] Pantoprazole Sodium (Pantoprazole 40 Mg Tab) 40 mg PO BID [facility]; Protocol Stop: 01/05/20 20:59 Last Admin: 12/08/19 08:37 Dose: 40 mg Documented by: [id number] Admin: 12/07/19 20:39 Dose: 40 mg Documented by: [id number] Admin: 12/07/19 08:59 Dose: 40 mg Documented by: [id number] Admin: 12/06/19 20:28 Dose: 40 mg Documented by: [id number] Senna/Docusate Sodium (Docusate Sodium/Senna 50/8.6mg Tab) 2 tab PO HS [facility] Stop: 01/05/20 20:59 Last Admin: 12/07/19 20:39 Dose: 2 tab Documented by: [id number] Admin: 12/06/19 20:28 Dose: 2 tab Documented by: [id number] Discontinued Medications Acetaminophen (Acetaminophen 500 Mg Tab) 1,000 mg PO PREOP [facility] Stop: 12/06/19 18:00 Last Admin: 12/06/19 11:47 Dose: 1,000 mg Documented by: [id number] Bacitracin (Bacitracin Inj 50,000 Unit Vial) Confirm Administered Dose 50,000 units .ROUTE .STK-MED ONE Stop: 12/06/19 12:33 Last Admin: 12/06/19 13:24 Dose: 50,000 units Documented by: [id number] Bupivacaine HCl/Epinephrine Bitart (Bupivacaine/Epinephrine 0.25% 1:200,000 30 Ml Vial) Confirm Administered Dose 30 ml .ROUTE .STK-MED ONE Stop: 12/06/19 12:33 Last Admin: 12/06/19 13:24 Dose: 24 ml Documented by: [id number] Celecoxib (Celebrex 200 Mg Cap) 200 mg PO PREOP JEANETTE Stop: 12/06/19 18:00 Last Admin: 12/06/19 11:47 Dose: 200 mg Documented by: [id number] Fentanyl Citrate (Fentanyl Citrate 100 Mcg/2 Ml Vial) 50 mcg IV Q5M PRN PRN Reason: PACU Use Only-Pain Stop: 12/06/19 20:03 Last Admin: 12/06/19 15:10 Dose: 50 mcg Documented by: [id number] Admin: 12/06/19 14:43 Dose: 50 mcg Documented by: [id number] Gabapentin (Gabapentin 900 Mg Dose) 900 mg PO PREOP JEANETTE Stop: 12/06/19 18:00 Last Admin: 12/06/19 11:46 Dose: 900 mg Documented by: [id number] Lactated Ringer's (Lr) 1,000 mls @ 15 mls/hr IV .Q24H JEANETTE Stop: 12/07/19 05:59 Last Infusion: 12/06/19 12:47 Dose: 0 mls/hr Documented by: [id number] Admin: 12/06/19 12:25 Dose: 15 mls/hr Documented by: [id number] Cefazolin Sodium (Ancef 1000mg) 1,000 mg in 7.5 mls @ 2.5 mls/min IV PREOP JEANETTE; Protocol Stop: 12/06/19 18:00 Last Admin: 12/06/19 12:47 Dose: 2.5 mls/min Documented by: [id number] Acetaminophen (Ofirmev) 1,000 mg in 100 mls @ 400 mls/hr IV Q8H PRN PRN Reason: MILD Pain Rating 1,2,3 Stop: 12/07/19 15:43 Last Infusion: 12/07/19 00:35 Dose: 0 mls/hr Documented by: [id number] Admin: 12/07/19 00:19 Dose: 400 mls/hr Documented by: [id number] Cefazolin Sodium (Ancef 2000mg) 2,000 mg in 15 mls @ 3.75 mls/min IV Q8H JEANETTE; Protocol Stop: 12/07/19 02:48 Last Admin: 12/07/19 02:42 Dose: 3.75 mls/min Documented by: [id number] Admin: 12/06/19 19:01 Dose: 3.75 mls/min Documented by: [id number] Sodium Chloride (Nss 1000ml) 1,000 mls @ 100 mls/hr IV .Q10H JEANETTE Stop: 01/05/20 15:43 Last Admin: 12/07/19 03:17 Dose: Not Given Documented by: [id number] Infusion: 12/07/19 03:17 Dose: 0 mls/hr Documented by: [id number] Admin: 12/06/19 16:12 Dose: 100 mls/hr Documented by: [id number] Ketorolac Tromethamine (Ketorolac Tromethamine 15 Mg/Ml Vial) 15 mg IV Q6H JEANETTE Stop: 12/07/19 10:01 Last Admin: 12/07/19 09:59 Dose: 15 mg Documented by: [id number] Admin: 12/07/19 03:10 Dose: 15 mg Documented by: [id number] Admin: 12/06/19 21:08 Dose: 15 mg Documented by: [id number] Admin: 12/06/19 17:22 Dose: 15 mg Documented by: [id number] Miscellaneous ( Floseal Hemostatic Matrix 10ml) 10 ml TOP ONCE ONE Stop: 12/06/19 13:26 Last Admin: 12/06/19 14:06 Dose: 17 ml Documented by: [id number] Polyethylene Glycol (Polyethylene (Miralax) 17 Gm Pack) 17 gm PO Q6 JEANETTE Last Admin: 12/07/19 18:04 Dose: Not Given Documented by: [id number] Admin: 12/07/19 12:28 Dose: 17 gm Documented by: [id number] Admin: 12/07/19 06:08 Dose: 17 gm Documented by: [id number]
[2019-12-08] MEDS ORDERED: FLUCONAZOLE 50 MG TAB PO ONE (11:34)
--- NOTE | 2019-12-08 11:36 | Discharge Summary ---
Date of Service December 08, 2019 Admission HPI Per Admitting Provider This is a 54-year-old female who presents with chronic persistent back and leg symptoms after failing course of nonoperative care is here for surgical intervention. Principal Diagnosis Lumbar spinal stenosis with radiculopathy Discharge Data Allergies Allergy/AdvReac Type Severity Reaction Status Date / Time clindamycin Allergy Hives Verified 12/06/19 11:45 iodine Allergy Redness of Verified 12/06/19 11:45 Skin latex Allergy Redness of Verified 12/06/19 11:45 Skin omeprazole Allergy Hives Verified 12/06/19 11:45 oxycodone Allergy Hives Verified 12/06/19 11:45 shellfish derived Allergy Hives Verified 12/06/19 11:45 Sulfa (Sulfonamide Allergy Hives Verified 12/06/19 11:45 Antibiotics) Consultations 12/06/19 15:44 Consult Case Management - Discharge Planning Routine Consult Hospitalist Routine Procedures Performed Operation Date: 12/06/19 12:25 Actual Procedures p L4-L5 Decompression Fusion with Interbody Cage, Application of Infuse, Spinal Cord Monitoring(Not Applicable) - Horace Holder DO Ordered Studies 12/06/19 12:25 FL fluoroscopy <1hr Routine FL lumbar spine 2-3V Routine Hospital Course (1) Lumbar disc herniation with radiculopathy: Patient went lumbar decompression fusion tolerated this well was taken to the orthopedic floor postoperatively postoperatively when she was up and ambulating progressed to postop day #2 pain well controlled excellent strength testing ARBEN drain decreasing appropriate. Socially discharged home. Discharge orders and instructions from the chart for further review. Total Time Total Time Spent Total Time Spent (In Minutes): 20 minutes Discharge Plan Discharge Items Patient Disposition: Home - Self-Care Reason For Visit: Spinal Stenosis, Lumbar Region without Neurogenic Discharge Diagnosis: Lumbar spinal stenosis with neurogenic claudication Activity: As commented below Non-emergency contact: Primary Care Provider Call non-emergency contact if: you have any medication questions Follow-up/Referrals: Darin James MD [Primary Care Provider] - Diet: Regular Addtl Attending Provider Instructions: ACTIVITY RECOMMENDATIONS: SELF CARE INSTRUCTIONS AFTER THORACIC/LUMBAR FUSIONS 1. You may walk to your tolerance. It is good exercise for your legs and back. Expect some back and intermittent leg aches and pains. 2. You may perform "counter-top" level activities (make a sandwich, tiburcio with a project, etc.). 3. No bending or lifting of more than 10 pounds or back twisting of any nature (roll like a log when turning in bed). 4. You may ride in a car for 20-30 minutes at a time. No driving until after your first visit with your doctor. 5. Frequent changes of position and restricting sitting to 30 minutes at a time will help limit the amount of back spasms and stiffness you may experience. 6. You may discontinue the use of ambulatory aids (cane, crutches, etc.) once your strength and confidence allow. 7. You may restorer paper and prints the shower and let water strike your incision when you arrive home at least once daily. Do not take a tub bath, sit in a hot tub or go into a swimming pool until after your first recheck in the office. SPECIAL CARE INSTRUCTIONS: VERY IMPORTANT TO READ AND REVIEW A. Your surgical incision has been closed with a cosmetic suture under the skin that will dissolve in about 6 weeks. In 14 days, you can use a pair of clean scissors and cut the suture that is left outside of the skin at the ends of your incision. 1. The small skin tapes can be removed 7 days after surgery if they have not fallen off by that point. 2. You may keep the wound open to air as much as possible to promote healing after post-op day number 5 unless told otherwise by your doctor. 3. If you think the wound looks like it is becoming infected (redness or worsening drainage) and/or you are experiencing fever, chill or worsening back pain and muscle spasms, contact the office so that we may evaluate you as soon as possible. B. Complications are uncommon, but please contact us if you have any signs or symptoms of: 1. wound infection (fever higher than 102.5 degrees F, redness, separation of wound, drainage, or increasing pain from the incision) 2. blood clots in legs (pain, swelling, redness and warmth in legs) 3. urinary tract infection (fever higher than 102.5 degrees F, burning upon urination or increased frequency of urination) 4. nerve problems (inability to walk on your toes or heels, numbness, loss of bowel or bladder control) 5. any other symptoms that concern you C. Please call the office at if you have any concerns or questions about your operation or recovery. D. No smoking! Smoking drastically decreases the chance of a solid fusion. E. Do not take any anti-inflammatory medications (Indocin, Advil, Motrin, Aspirin, Naprosyn, etc.) as these may inhibit the chance of a solid fusion. Tylenol is okay to take for pain. MANAGING PAIN AFTER SPINAL SURGERY 1. Narcotic medication is intended for short-term use and will be provided for surgical pain. Surgical pain usually lasts for a period of 4-6 weeks. Narcotic medication includes Percocet, Vicodin, Darvocet, Tylenol #3 or Lortab. 2. Longer-term pain is more appropriately treated with non-narcotic medication such as Tylenol ES. 3. Muscle spasm is not appropriately treated with narcotics. Muscle relaxers such as Soma, Flexeril or Skelaxin can be used along with Tylenol ES. 4. Remember that we all live with some "aches and pains". This is not unusual or uncommon after an injury or as we get older. a. Back pain is expected and may include muscle spasms for 4 to 6 weeks after surgery. The pain should gradually improve. If the pain worsens for no apparent reason, please contact the office. b. Intermittent leg pain may also be experienced and should not be concerned about unless it worsens for no apparent reason. If so, please contact the office. 5. We will provide appropriate medication within the normal guidelines of their prescribed use. We will also be very cautious and aware of potential abuse and extended duration of patients' medication needs. a. Pain medications are for your comfort and to assist with sleep and rest so that the tissue can heal. They are not provided in order to return to normal activity and should not be used through the day. To do so or worsening pain at night can result from ongoing tissue damage and development of tolerance to the prescribed medicine. 6. Please allow 2-3 days to process refills. Prescriptions will not be mailed but must be picked up at the office. FOLLOW UP VISIT: Keep your scheduled follow-up appointment. Any questions, please call the office at . Pending Studies at Discharge: No Stand-Alone Forms: [employer], Smoking Cessation Medications and [place] Order Prescriptions: New hydrocodone-acetaminophen 5-325 mg tablet See Rx Instructions .ROUTE .COMPLEX PRN (Reason: pain) Qty: 30 RF: 0 tramadol 50 mg tablet 50 mg PO Q6H PRN (Reason: pain, moderate) Qty: 30 RF: 0 Continued losartan 50 mg Tablet 50 mg PO QAM RF: 0 metformin 500 mg Tablet 500 mg PO BID RF: 0 amlodipine 5 mg Tablet 5 mg PO QPM RF: 0 alprazolam [Xanax] 0.25 mg Tablet 0.25 mg PO QPM PRN (Reason: Anxiety) RF: 0 metoclopramide HCl [Reglan] 5 mg Tablet 5 mg PO BID RF: 0 cyanocobalamin (vitamin B-12) [Vitamin B-12] 500 mcg Tablet 500 mcg PO QAM RF: 0 ascorbic acid (vitamin C) [Vitamin C] 500 mg Tablet 500 mg PO QAM RF: 0 lansoprazole [Prevacid] 30 mg Capsule,Delayed Release(Dr/Ec) 30 mg PO BID RF: 0 montelukast [Singulair] 10 mg Tablet 10 mg PO PM RF: 0 albuterol sulfate 90 mcg/actuation Hfa Aerosol Inhaler 1 inh INHALATION QID PRN (Reason: sob) RF: 0 Discharge Orders: Discharge Order (Routine); Ordered 12/08/19 Ordered By: Horace Mcgregor/Other Patient Handouts: Managing Type 2 Diabetes, Managing Diabetes: The A1C Test Admission Data Admit Date/Time: 12/06/19 14:31 Attending Provider: Horace Holder Admit Provider: Horace Holder Primary Care Provider: Darin James Providers: Brent Esparza ; Kapil Nino
== END 2019-12-08 13:39 | disposition home or self-care (01) | DRG 455 ==
LOC: ASU 11:17 → 3E 14:31